=== PATIENT | female | born 1965 | race American Indian/Alaskan Native ===

== ENCOUNTER 2017-04-05 17:03 | Emergency (ER) | payer SELFPAY ==
--- NOTE | 2017-04-05 17:40 | Emergency Department Report ---
Stated Complaint: BILAT FOOT PAIN Time Seen by Provider: 04/05/17 17:38 - HPI History of Present Illness: PT c/o numbness to both feet. PT states she is boarderline DM - ROS Review of Systems: + increased thirst and urination + irregular cycle - Exam Physical Exam: R foot appears normal. no weakness MSE screening note: Focused history and physical exam performed. Due to findings the following was ordered: ED Disposition for MSE Condition: Stable
[2017-04-05 18:06] LABS: Basophils % (Auto) 0.4 % (0.0-1.8); Eosinophils % (Auto) 2.9 % (0.0-4.3); Hematocrit 42.9 % (30.3-42.9); Hemoglobin 13.6 gm/dl (10.1-14.3); Mean Corpuscular HGB Conc 32 % (30-34); Mean Corpuscular Volume 75 fl (79-97); Platelet Count 197 K/mm3 (140-440); Red Blood Count 5.72 M/mm3 (3.65-5.03)
[2017-04-05 18:14] LABS: Mean Corpuscular Hemoglobin 24 pg (28-32); Red Cell Distribution Width 20.5 % (13.2-15.2)
[2017-04-05 18:18] LABS: Anion Gap 16 mmol/L; BUN/Creatinine Ratio 28.75; Blood Urea Nitrogen 23 mg/dL (7-17); Carbon Dioxide 26 mmol/L (22-30); Chloride 106.2 mmol/L (98-107); Glucose 152 mg/dL (65-100); Sodium 144 mmol/L (137-145)
[2017-04-06 06:41] LABS: Bacteria,Urine 1+ /HPF (Negative); Bilirubin,Urine NEG (Negative); Blood,Urine NEG (Negative); Ketones,Urine NEG (Negative); Leukocyte Esterase,Urine SM (Negative); Mucus,Urine FEW /HPF; Nitrite,Urine NEG (Negative); Protein,Urine <15 mg/dL mg/dL (Negative); Urobilinogen,Urine < 2.0 mg/dL (<2.0)
[2017-04-06] MEDS ORDERED: MOTRIN PO ONE (07:47)
--- NOTE | 2017-04-06 07:49 | Emergency Department Report ---
HPI - General Chief Complaint: Extremity Injury, Lower Time Seen by Provider: 04/05/17 17:38 - HPI HPI: 51-year-old [place] female coming in pain in both feet but worse on the left. She states that her pain is accompanied by numbness, and tingling but no weakness or paralysis. Patient has not taking any medication at home for her symptoms. She denies any exacerbating factors. She denies any alleviating factors. She denies any recent travel, patient has not been taking her medications due to lack of insurance. She does have a history of CHF, high blood pressure. MD Complaint: Foot pain -: Gradual Location: Left foot Radiation: none Migration to: no migration Severity scale (0 -10): 10 Quality: sharp Improves With: nothing Associated Symptoms: Numbness and tingling ED Past Medical Hx - Past Medical History Previous Medical History?: Yes Hx Hypertension: Yes Hx Diabetes: Yes (borderline) - Surgical History Past Surgical History?: No - Family History Family history: hypertension - Social History Smoking Status: Current Every Day Smoker Substance Use Type: Alcohol - Medications Home Medications: Home Medications Medication Instructions Recorded Confirmed Last Taken Type Naproxen [Naprosyn] 500 mg PO BID #30 tablet 01/14/14 Unknown Rx methOCARBAMOL [Robaxin] 500 mg PO BID #30 tab 01/14/14 Unknown Rx traMADol [Ultram 50 MG tab] 50 mg PO Q6HR PRN #30 tablet 01/14/14 Unknown Rx Furosemide [Lasix] 20 mg PO DAILY #7 tablet 04/02/14 Unknown Rx HYDROcodone/APAP 5-325 [[place] 2 each PO Q6HR PRN #30 tablet 04/02/14 Unknown Rx 5/325] Sulfamethoxazole/Trimethoprim 1 each PO BID #14 tablet 04/02/14 Unknown Rx [Bactrim Ds] Gabapentin [Neurontin] 100 mg PO Q8HR #30 capsule 04/06/17 Unknown Rx ED Review of Systems ROS: Stated complaint: BILAT FOOT PAIN Other details as noted in HPI Comment: All other systems reviewed and negative Cardiovascular: as per HPI Endocrine: no symptoms reported Musculoskeletal: other (bilateral foot pain) Physical Exam - Physical Exam Vital Signs: Vital Signs 04/05/17 04/06/17 04/06/17 17:36 02:25 05:34 Temperature 98.3 F 97.5 F L Pulse Rate 97 H 72 Respiratory 16 18 Rate Blood Pressure 176/72 185/101 196/83 O2 Sat by Pulse 98 100 Oximetry 04/06/17 04/06/17 04/06/17 05:46 06:15 06:31 Temperature Pulse Rate Respiratory Rate Blood Pressure 176/72 162/84 134/92 O2 Sat by Pulse Oximetry 04/06/17 04/06/17 04/06/17 06:46 07:00 07:15 Temperature Pulse Rate Respiratory Rate Blood Pressure 189/88 158/77 165/75 O2 Sat by Pulse Oximetry 04/06/17 04/06/17 07:30 07:35 Temperature Pulse Rate Respiratory 16 Rate Blood Pressure 166/77 O2 Sat by Pulse 98 Oximetry Physical Exam: - Physical Exam Physical Exam: - General Limitations: No Limitations General appearance: alert, in no apparent distress, obese - Head Head exam: Present: atraumatic, normocephalic - Eye Eye exam: Present: normal appearance - ENT ENT exam: Present: mucous membranes moist - Neck Neck exam: Present: normal inspection - Respiratory Respiratory exam: Present: normal lung sounds bilaterally. Absent: respiratory distress - Cardiovascular Cardiovascular Exam: Present: normal rhythm, normal rate. Absent: systolic murmur, diastolic murmur, rubs, gallop - GI/Abdominal GI/Abdominal exam: Present: soft, normal bowel sounds - Extremities Exam Extremities exam: Present: normal inspection, good dorsalis pedis pulses bilaterally, good posterior tibial pulses bilaterally, subjective neuropathy both feet. - Back Exam Back exam: Present: normal inspection - Neurological Exam Neurological exam: Present: alert, oriented X3 - Psychiatric Psychiatric exam: normal affect and mood - Skin Skin exam: Present: warm, dry, intact, normal color. Absent: rash ED Course Vital Signs 04/05/17 04/06/17 04/06/17 17:36 02:25 05:34 Temperature 98.3 F 97.5 F L Pulse Rate 97 H 72 Respiratory 16 18 Rate Blood Pressure 176/72 185/101 196/83 O2 Sat by Pulse 98 100 Oximetry 04/06/17 04/06/17 04/06/17 05:46 06:15 06:31 Temperature Pulse Rate Respiratory Rate Blood Pressure 176/72 162/84 134/92 O2 Sat by Pulse Oximetry 04/06/17 04/06/17 04/06/17 06:46 07:00 07:15 Temperature Pulse Rate Respiratory Rate Blood Pressure 189/88 158/77 165/75 O2 Sat by Pulse Oximetry 04/06/17 04/06/17 07:30 07:35 Temperature Pulse Rate Respiratory 16 Rate Blood Pressure 166/77 O2 Sat by Pulse 98 Oximetry - Reevaluation(s) Reevaluation #1: 04/06/17 07:49 Patient advised to follow up with PCP for proper diabetes diagnosis along with hemoglobin A1c. Glucose was slightly abnormal in ED patient advised to the urgency of this follow-up. ED Medical Decision Making - Lab Data Result diagrams: 04/05/17 17:57 04/05/17 17:57 Critical care attestation.: If time is entered above; I have spent that time in minutes in the direct care of this critically ill patient, excluding procedure time. ED Disposition Clinical Impression: Hyperglycemia Neuropathy, peripheral Qualifiers: Peripheral neuropathy type: polyneuropathy, unspecified Qualified Code(s): G62.9 - Polyneuropathy, unspecified Disposition: DC-01 TO HOME OR SELFCARE Is pt being admited?: No Does the pt Need Aspirin: No Condition: Stable Instructions: Peripheral Neuropathy (ED), Hyperglycemia, Non-Diabetic (ED) Prescriptions: Gabapentin [Neurontin] 100 mg PO Q8HR #30 capsule Referrals: PRIMARY CARE, [Primary Care Provider] - 3-5 Days
[2017-04-06 08:06] VITALS: BP 161/78
== END 2017-04-06 08:21 | disposition home or self-care (01) ==
LOC: ED 17:03
DX: E11.65 Type 2 diabetes mellitus with hyperglycemia (principal); E11.42 Type 2 diabetes mellitus with diabetic polyneuropathy; I10 Essential (primary) hypertension; F17.210 Nicotine dependence, cigarettes, uncomplicated
CPT/HCPCS: 36415; 80048; 81001; 84703; 85025; 99283

== ENCOUNTER 2019-04-27 08:21 | Inpatient (IN) | payer OTHER ==
--- NOTE | 2019-04-27 08:45 | Emergency Department Report ---
HPI - HPI HPI: 53 yo comes to ER today complaining of general "not feeling good." She denies fever/chills. She was seen here earlier in the week for an insect bite to the right calf. Pt states she is taking her antibiotic. She denies cp or sob. She says "do something for me I feel sick." She states when she eats she gets nauseated and she does report some diarrhea. Pt is ill appearing today- mild tachycardia 106 on admit. PMH arthritis HTN borderline DM- does not take meds and does not monitor glucose chronic pain home meds robaxin lasix norco gabapentin motrin SSD for leg keflex for leg wound Lives with daughter in [place]; lives with daughter pcp [facility] [place] <ELSI BLAS - Last Filed: 04/27/19 09:49> - HPI HPI: I agree with the previously mentioned HPI from the nurse practitioner. Now, knowing the patient has severe hyperglycemia, the patient does admit to polyuria, polydipsia. She denies any fever, chest pain, shortness of breath. No recent travel or sick contacts at home. <JAYY VIZCAINO - Last Filed: 04/27/19 15:41> - General Chief Complaint: Extremity Problem,Nontraumatic Time Seen by Provider: 04/27/19 08:43 ED Past Medical Hx - Past Medical History Previous Medical History?: Yes Hx Hypertension: Yes Hx CVA: No Hx Heart Attack/AMI: No Hx Congestive Heart Failure: No Hx Diabetes: Yes (borderline) Hx Deep Vein Thrombosis: No Hx Pulmonary Embolism: No Hx GERD: No Hx Liver Disease: No Hx Renal Disease: No Hx of Cancer: No Hx Sickle Cell Disease: No Hx Arthritis: Yes Hx Headaches / Migraines: No Hx Seizures: No Hx Kidney Stones: No Hx Psychiatric Treatment: No Hx Asthma: No Hx COPD: No Hx Tuberculosis: No Hx Dementia: No Hx HIV: No - Surgical History Past Surgical History?: Yes Additional Surgical History: surgery on foot - Family History Family history: other (mom and dad dec htn/dm) - Social History Smoking Status: Never Smoker Substance Use Type: None <ELSI BLAS - Last Filed: 04/27/19 09:49> <JAYY VIZCAINO - Last Filed: 04/27/19 15:41> - Medications Home Medications: Home Medications Medication Instructions Recorded Confirmed Last Taken Type Ibuprofen [Motrin] 800 mg PO Q8HR PRN #30 tablet 04/25/19 04/27/19 Unknown Rx cephALEXin [Keflex] 500 mg PO Q12HR #20 cap 04/25/19 04/27/19 Unknown Rx Diclofenac 1% [Diclofenac 1% 2 gram TP QID 04/27/19 04/27/19 Unknown History topical gel] Mupirocin [Bactroban 2%] 1 applic TP BID 04/27/19 04/27/19 Unknown History Silver Sulfadiazine [Ssd] 1 applic TP BID 04/27/19 04/27/19 Unknown History amLODIPine [Norvasc] 10 mg PO DAILY 04/27/19 04/27/19 Unknown History hydroCHLOROthiazide [HCTZ] 25 mg PO QDAY 04/27/19 04/27/19 Unknown History ED Review of Systems ROS: Stated complaint: CHEST PAIN/RT LEG PAIN Other details as noted in HPI Comment: All other systems reviewed and negative Constitutional: denies: chills, fever Respiratory: denies: cough Cardiovascular: denies: chest pain, palpitations, dyspnea on exertion, orthopnea Endocrine: denies: excessive sweating Gastrointestinal: as per HPI, nausea. denies: abdominal pain, vomiting Genitourinary: denies: urgency, dysuria Musculoskeletal: denies: back pain Skin: denies: rash, lesions Neurological: as per HPI, weakness. denies: headache Psychiatric: denies: anxiety, depression Hematological/Lymphatic: denies: easy bleeding <ELSI BLAS - Last Filed: 04/27/19 09:49> ROS: Stated complaint: CHEST PAIN/RT LEG PAIN Other details as noted in HPI <JAYY VIZCAINO - Last Filed: 04/27/19 15:41> Physical Exam - Physical Exam Vital Signs: Vital Signs 04/27/19 08:29 Temperature 98.5 F Pulse Rate 106 H Respiratory 16 Rate Blood Pressure 160/85 [Left] O2 Sat by Pulse 97 Oximetry Physical Exam: alert appears much older than stated age ambulatory s1s2 mild tachycardia round obese abd no jvd no edema no cva tenderness <ELSI BLAS - Last Filed: 04/27/19 09:49> - Physical Exam Vital Signs: Vital Signs 04/27/19 08:29 Temperature 98.5 F Pulse Rate 106 H Respiratory 16 Rate Blood Pressure 160/85 [Left] O2 Sat by Pulse 97 Oximetry Physical Exam: GENERAL: Patient is ill-appearing. HENT: Normocephalic. Atraumatic. Patient has moist mucous membranes. EYES: Extraocular motions are intact. Pupils equal reactive to light bilaterally. NECK: Supple. Trachea is midline. CHEST/LUNGS: Clear to auscultation. There is no respiratory distress noted. HEART/CARDIOVASCULAR: Regular. There is no tachycardia. There is no murmur. ABDOMEN: Abdomen is soft, nontender. Patient has normal bowel sounds. There is no abdominal distention. SKIN: There is a small ulcerating wound and and mild erythema to the distal right lower extremity. No bleeding, weeping, drainage. NEURO: The patient is awake, alert, and oriented. The patient is cooperative. The patient has no focal neurologic deficits. Normal speech. MUSCULOSKELETAL: There is no tenderness or deformity. There is no evidence of acute injury. <JAYY VIZCAINO S - Last Filed: 04/27/19 15:41> ED Course Vital Signs 04/27/19 08:29 Temperature 98.5 F Pulse Rate 106 H Respiratory 16 Rate Blood Pressure 160/85 [Left] O2 Sat by Pulse 97 Oximetry <ELSI BLAS - Last Filed: 04/27/19 09:49> Vital Signs 04/27/19 08:29 Temperature 98.5 F Pulse Rate 106 H Respiratory 16 Rate Blood Pressure 160/85 [Left] O2 Sat by Pulse 97 Oximetry <JAYY VIZCAINO S - Last Filed: 04/27/19 15:41> ED Medical Decision Making - Lab Data Result diagrams: 04/27/19 08:52 - Medical Decision Making Lab Results 04/27/19 Range/Units 08:52 Sodium 117 L* (137-145) mmol/L Potassium 5.3 H (3.6-5.0) mmol/L Chloride 77.8 L (98-107) mmol/L Carbon Dioxide 20 L (22-30) mmol/L Anion Gap 25 mmol/L BUN 22 H (7-17) mg/dL Creatinine 1.1 (0.7-1.2) mg/dL Estimated GFR > 60 ml/min BUN/Creatinine Ratio 20 % Glucose 1327 H* (65-100) mg/dL Calcium 10.6 H (8.4-10.2) mg/dL Total Bilirubin 0.60 (0.1-1.2) mg/dL AST 20 (5-40) units/L ALT 23 (7-56) units/L Alkaline Phosphatase 114 (35-129) units/L Total Protein 7.7 (6.3-8.2) g/dL Albumin 4.1 (3.9-5) g/dL Albumin/Globulin Ratio 1.1 % Vital Signs 04/27/19 08:29 Temperature 98.5 F Pulse Rate 106 H Respiratory 16 Rate Blood Pressure 160/85 [Left] O2 Sat by Pulse [address] Vizcaino in main ED Pt udpdated on condition; she has been asked to call her daughter. additional labs/orders placed Charge Nurse moved pt to main ED. - Differential Diagnosis ro sytemic infection/electolyte imbalance/hyperglycemia <ELSI BLAS - Last Filed: 04/27/19 09:49> - Lab Data Result diagrams: 04/27/19 10:06 04/27/19 12:52 - EKG Data -: EKG Interpreted by Me EKG shows normal: sinus rhythm, axis, intervals, QRS complexes (LVH), ST-T waves (early repolarization) Rate: normal - EKG Data When compared to previous EKG there are: previous EKG unavailable Interpretation: other (sinus rhythm, LVH, early repolarization) - Radiology Data Radiology results: image reviewed interpreted by me: Chest x-ray does not show any acute process. There are no pleural effusions, obvious pneumonia and there is no pneumothorax. - Medical Decision Making This patient originally was on the fast-track side of this emergency department with some general complaints of feeling ill. Her initial labs began showing concerns for DKA with a blood sugar greater than 1300 and hyponatremia. Patient did not have any significant venous acidosis but does have an anion gap elevation of 25. The sodium was 117 but part of this may be pseudohyponatremia. The patient was previously known is a borderline diabetic but she does appear to have diabetes at this time and even appears to be in DKA. She was placed on an insulin drip and given IV fluid resuscitation. The patient will be admitted to the ICU for further evaluation and treatment and was accepted for admission by the hospitalist service. Vital signs stable throughout her ED course thus far. - Differential Diagnosis Sepsis, DKA, HHNK, Cellulitis <JOSEPHJAYY Austin - Last Filed: 04/27/19 15:41> Critical care attestation.: If time is entered above; I have spent that time in minutes in the direct care of this critically ill patient, excluding procedure time. <ELSI BLAS - Last Filed: 04/27/19 09:49> Critical Care Time: Yes Critical care time in (mins) excluding proc time.: 35 Critical care attestation.: If time is entered above; I have spent that time in minutes in the direct care of this critically ill patient, excluding procedure time. Critical care time was spent on this patient and doing her initial evaluation, multiple re-evaluations, ordering and interpretation of labs and imaging, ordering of IV fluid resuscitation and insulin drip, discussion with the hospitalist service. Critical Care Time: 35 minutes <JOSEPHJAYY S - Last Filed: 04/27/19 15:41> ED Disposition Is pt being admited?: Yes Does the pt Need Aspirin: No <ELSI BLAS A - Last Filed: 04/27/19 09:49> Is pt being admited?: Yes Time of Disposition: 10:54 <JOSEPHJAYY Austin - Last Filed: 04/27/19 15:41> Clinical Impression: Diabetes mellitus, new onset Diabetic ketoacidosis Qualifiers: Diabetes mellitus type: other specified (including CECILIA) Diabetes mellitus complication detail: without coma Qualified Code(s): E13.10 - Other specified diabetes mellitus with ketoacidosis without coma Hypertension Qualifiers: Hypertension type: essential hypertension Qualified Code(s): I10 - Essential (primary) hypertension Cellulitis, leg Qualifiers: Laterality: right Qualified Code(s): L03.115 - Cellulitis of right lower limb Disposition: OP ADMIT IP TO THIS HOSP Condition: Serious
[2019-04-27] MEDS ORDERED: LIDOCAINE-MPF (1%) 10 MG/1 ML VIAL 5 ML INFILTRATI ONE (09:16)
[2019-04-27] MEDS ORDERED: IBUPROFEN 800 MG TAB PO ONE (09:16)
[2019-04-27 09:25] LABS: Alanine Aminotransferase 23 units/L (7-56); Albumin 4.1 g/dL (3.9-5); BUN/Creatinine Ratio 20; Blood Urea Nitrogen 22 mg/dL (7-17); Calcium 10.6 mg/dL (8.4-10.2); Hemolysis Index 65
[2019-04-27] MEDS ORDERED: ONDANSETRON 4 MG/2 ML INJ IV ONE ×2 (09:36→10:33)
[2019-04-27] MEDS ORDERED: LIDOCAINE-MPF (1%) 10 MG/1 ML VIAL 5 ML ONE (09:46)
--- NOTE | 2019-04-27 10:15 | XRay Report ---
CHEST 1 VIEW INDICATION: sob. Acute shortness of breath COMPARISON: 05/18/2010 FINDINGS: Support devices: None. Heart: Within normal limits. Lungs/Pleura: No acute air space or interstitial disease. Additional findings: None. IMPRESSION: 1. No acute findings. Signer Name: Ubaldo Gamez MD Signed: 04/27/2019 10:11 AM Workstation Name: [id number]
[2019-04-27] MEDS ORDERED: DEXTROSE 50% IN WATER (25GM) 50 ML SYRINGE IV PRN (10:33)
[2019-04-27] MEDS ORDERED: SODIUM CHLORIDE 0.9% 1000 ML 1,000 ML IV ONE (10:33)
[2019-04-27] MEDS: INSULIN REGULAR, HUMAN 100 UNITS in SODIUM CHLORIDE 0.9% 99 ML IV SCH (11:06)
[2019-04-27 11:18] LABS: HCG Qualitative,Urine Negative (Negative)
[2019-04-27 11:19] LABS: Bacteria,Urine 1+ /HPF (Negative); Bilirubin,Urine NEG (Negative); Blood,Urine NEG (Negative); Color,Urine Colorless (Yellow); Protein,Urine <15 mg/dL mg/dL (Negative); Urobilinogen,Urine < 2.0 mg/dL (<2.0)
[2019-04-27 11:29] LABS: Basophils % (Auto) 0.4 % (0.0-1.8); Eosinophils # (Auto) 0.1 K/mm3 (0.0-0.4); Eosinophils % (Auto) 0.7 % (0.0-4.3); Hematocrit 49.6 % (30.3-42.9); Hemoglobin 15.6 gm/dl (10.1-14.3); Lymphocytes # (Auto) 1.3 K/mm3 (1.2-5.4); Lymphocytes % (Auto) 12.2 % (13.4-35.0); Mean Corpuscular HGB Conc 31 % (30-34); Mean Corpuscular Volume 86 fl (79-97); Monocytes # (Auto) 0.8 K/mm3 (0.0-0.8); Monocytes % (Auto) 7.5 % (0.0-7.3); Platelet Count 219 K/mm3 (140-440); Red Blood Count 5.75 M/mm3 (3.65-5.03); Red Cell Distribution Width 13.2 % (13.2-15.2)
[2019-04-27 12:26] LABS: BUN/Creatinine Ratio 21; Blood Urea Nitrogen 21 mg/dL (7-17); Calcium 11.2 mg/dL (8.4-10.2); Hemolysis Index 13
[2019-04-27] MEDS ORDERED: hydrALAZINE 20 MG/1 ML INJ IV PRN (12:35)
--- NOTE | 2019-04-27 12:42 | History and Physical Report ---
History of Present Illness Date of examination: 04/27/19 Date of admission: 04/27/19 10:54 Chief complaint: Not feeling well, nausea or vomiting History of present illness: 49-year-old -[place] female patient with significant past medical history of hypertension, recent insect bite on oral antibiotics presented to the emergency room With the complaints of not feeling well, nausea vomiting and generalized weakness, Denies chest pain or shortness of breath, Denies headache dizziness Denies weakness or numbness, Initial workup in the emergency room is consistent with severe hyper glycemia. Blood sugars more than thousand, mild acidosis, hyponatremia Patient was started on insulin drip and is being admitted to ICU for further evaluation and management Patient also complains of leg cramps and reports that she takes pain medications Robaxin and gabapentin. Patient denies history of diabetes mellitus however reports that she was told that she is prediabetic and is not on any medication Past History Past Medical History: diabetes, hypertension, other (muscle cramps) Past Surgical History: Other (tubal ligation, foot surgery) Social history: denies: smoking, alcohol abuse, prescription drug abuse Family history: hypertension Medications and Allergies Allergies Allergy/AdvReac Type Severity Reaction Status Date / Time No Known Allergies Allergy Unverified 01/14/14 09:59 Home Medications Medication Instructions Recorded Confirmed Last Taken Type Ibuprofen [Motrin] 800 mg PO Q8HR PRN #30 tablet 04/25/19 04/27/19 Unknown Rx cephALEXin [Keflex] 500 mg PO Q12HR #20 cap 04/25/19 04/27/19 Unknown Rx Diclofenac 1% [Diclofenac 1% 2 gram TP QID 04/27/19 04/27/19 Unknown History topical gel] Mupirocin [Bactroban 2%] 1 applic TP BID 04/27/19 04/27/19 Unknown History Silver Sulfadiazine [Ssd] 1 applic TP BID 04/27/19 04/27/19 Unknown History amLODIPine [Norvasc] 10 mg PO DAILY 04/27/19 04/27/19 Unknown History hydroCHLOROthiazide [HCTZ] 25 mg PO QDAY 04/27/19 04/27/19 Unknown History Active Meds: Active Medications Amlodipine Besylate (Norvasc) 10 mg PO DAILY PAMELA Dextrose (D50w (25gm) Syringe) 0 ml IV PRN PRN PRN Reason: Hypoglycemia Hydralazine HCl (Apresoline) 25 mg PO Q8HR PAMELA Hydralazine HCl (Apresoline) 10 mg IV Q4HR PRN PRN Reason: Hypertension Hydrochlorothiazide (Hctz) 25 mg PO QDAY PAMELA Insulin Human Regular 100 (units/ Sodium Chloride) 100 mls @ 6 mls/hr IV TITR PAMELA; Protocol Last Admin: 04/27/19 11:06 Dose: 8 units/hr, 8 mls/hr Documented by: Sodium Chloride (Nacl 0.9% 1000 Ml) 1,000 mls @ 125 mls/hr IV DIRECT PAMELA Pantoprazole Sodium (Protonix) 40 mg IV QDAY [facility] Review of Systems Constitutional: fatigue, weakness, no weight loss, no weight gain, no fever, no chills Ears, nose, mouth and throat: no nasal congestion, no nasal discharge Cardiovascular: no chest pain, no orthopnea, no palpitations Respiratory: no cough, no shortness of breath Gastrointestinal: nausea, no vomiting, no diarrhea Musculoskeletal: shooting leg pain, leg numbness/tingling, muscle cramps, no arthritis Integumentary: lesions (insect bite), no rash Neurological: weakness, no seizures, no syncope Psychiatric: no anxiety, no depression Endocrine: no cold intolerance, no heat intolerance Hematologic/Lymphatic: no easy bruising, no easy bleeding Allergic/Immunologic: no urticaria, no allergic rhinitis Exam - Constitutional Vitals: Temp Pulse Resp BP Pulse Ox 98.6 F 99 H 20 165/94 97 04/27/19 11:51 04/27/19 11:51 04/27/19 11:51 04/27/19 11:51 04/27/19 11:51 General appearance: Present: no acute distress, well-nourished - EENT Eyes: Present: PERRL, EOM intact - Neck Neck: Present: supple, normal ROM - Respiratory Respiratory effort: normal Respiratory: bilateral: diminished, negative: rales, rhonchi, wheezing - Cardiovascular Rhythm: regular Heart Sounds: Present: S1 & S2 - Extremities Extremities: no ischemia, No edema, abnormal (infected wound on the carr ) - Abdominal General gastrointestinal: Present: soft, non-tender, non-distended, normal bowel sounds - Integumentary Integumentary: Present: clear, warm - Musculoskeletal Musculoskeletal: strength equal bilaterally - Psychiatric Psychiatric: appropriate mood/affect, cooperative - Neurologic Neurologic: CNII-XII intact, moves all extremities Results - Labs CBC & Chem 7: 04/27/19 10:06 04/27/19 12:52 Labs: Abnormal lab results 04/27/19 04/27/19 04/27/19 Range/Units 08:52 09:45 10:06 RBC 5.75 H (3.65-5.03) M/mm3 Hgb 15.6 H (10.1-14.3) gm/dl Hct 49.6 H (30.3-42.9) % MCH 27 L (28-32) pg Lymph % (Auto) 12.2 L (13.4-35.0) % [place] % (Auto) 7.5 H (0.0-7.3) % Seg Neutrophils % 79.2 H (40.0-70.0) % Seg Neutrophils # 8.5 H (1.8-7.7) K/mm3 Sodium 117 L* (137-145) mmol/L Potassium 5.3 H (3.6-5.0) mmol/L Chloride 77.8 L (98-107) mmol/L Carbon Dioxide 20 L (22-30) mmol/L BUN 22 H (7-17) mg/dL Glucose 1327 H* (65-100) mg/dL Calcium 10.6 H (8.4-10.2) mg/dL Magnesium 2.90 H (1.7-2.3) mg/dL 04/27/19 Range/Units 11:36 RBC (3.65-5.03) M/mm3 Hgb (10.1-14.3) gm/dl Hct (30.3-42.9) % MCH (28-32) pg Lymph % (Auto) (13.4-35.0) % [place] % (Auto) (0.0-7.3) % Seg Neutrophils % (40.0-70.0) % Seg Neutrophils # (1.8-7.7) K/mm3 Sodium 124 L D (137-145) mmol/L Potassium (3.6-5.0) mmol/L Chloride 84.6 L (98-107) mmol/L Carbon Dioxide 20 L (22-30) mmol/L BUN 21 H (7-17) mg/dL Glucose (65-100) mg/dL Calcium 11.2 H (8.4-10.2) mg/dL Magnesium (1.7-2.3) mg/dL Assessment and Plan --Hyperosmolar nonketotic hyperglycemia; Vigorous IV hydration, insulin drip per protocol Follow electrolytes and correct as needed Supportive care, clear liquid diet to advance as tolerated --New onset diabetes mellitus; Continue insulin drip, transitioned to long-acting insulin been stable diabetic education, nutrition consult Home health nurse upon discharge for disease monitoring --Hyponatremia/pseudohyponatremia; Secondary to severe hyperglycemia, closely monitor electrolytes --Hypertension; resume home antihypertensives When necessary medications --Metabolic acidosis; mild, IV fluids Closely monitor --Severe dehydration; vigorous IV hydration --Peripheral neuropathy; gabapentin --Severe muscle spasms; muscle relaxers, pain medication IV fluids, monitor electrolytes --DVT : prophylaxis; Lovenox Closely monitor the patient and adjust the management as needed Plan of care reviewed with the patient and her nurse Critical care consult Critical care time 45 minutes
[2019-04-27 14:15] LABS: Calcium 11.4 mg/dL (8.4-10.2)
[2019-04-27] MEDS ORDERED: ZOLPIDEM 5 MG TAB PO PRN (14:57)
[2019-04-27] MEDS: KETOROLAC 30 MG/1 ML INJ IV SCH ×2 (15:17→22:07)
[2019-04-27] MEDS: hydrALAZINE 25 MG TAB PO SCH ×2 (15:19→22:05)
[2019-04-27] MEDS: D5W/0.45% NACL/KCL 20 MEQ 20 MEQ/1,000 ML BAG IV SCH ×2 (15:51→23:42)
[2019-04-27 16:00] LABS: Calcium 11.7 mg/dL (8.4-10.2)
[2019-04-27 17:00] LABS: Calcium 11.3 mg/dL (8.4-10.2)
[2019-04-27] MEDS: oxyCODONE /ACETAMINOPHEN 5-325MG TAB PO PRN (17:48)
[2019-04-27 21:19] LABS: Calcium 10.9 mg/dL (8.4-10.2)
[2019-04-27] MEDS: GABAPENTIN 100 MG CAP PO SCH (22:04)
[2019-04-27] MEDS: MUPIROCIN 2% OINT 22 GM TP SCH (22:06)
[2019-04-27] MEDS: cephALEXin 500 MG CAP PO SCH (22:11)
[2019-04-28] MEDS: D5W/0.45% NACL/KCL 20 MEQ 20 MEQ/1,000 ML BAG IV SCH (05:14)
[2019-04-28] MEDS: oxyCODONE /ACETAMINOPHEN 5-325MG TAB PO PRN ×2 (05:15→22:21)
[2019-04-28 05:16] LABS: Calcium 10.1 mg/dL (8.4-10.2)
[2019-04-28] MEDS: hydrALAZINE 25 MG TAB PO SCH ×3 (05:16→22:21)
[2019-04-28] MEDS: GABAPENTIN 100 MG CAP PO SCH ×3 (05:16→22:21)
[2019-04-28] MEDS: KETOROLAC 30 MG/1 ML INJ IV SCH ×2 (06:07→14:50)
[2019-04-28] MEDS: INSULIN REGULAR, HUMAN 100 UNITS in SODIUM CHLORIDE 0.9% 99 ML IV SCH (07:35)
[2019-04-28] MEDS: amLODIPine 10 MG TAB PO SCH (09:46)
[2019-04-28] MEDS: hydroCHLOROthiazide 25 MG TAB PO SCH (09:46)
[2019-04-28] MEDS: cephALEXin 500 MG CAP PO SCH ×2 (09:47→22:21)
[2019-04-28] MEDS: MUPIROCIN 2% OINT 22 GM TP SCH ×2 (09:48→22:34)
[2019-04-28] MEDS ORDERED: INSULIN NPH/REGULAR 70/30 INJ SUB-Q NR (09:49)
--- NOTE | 2019-04-28 09:49 | Progress Note ---
Assessment and Plan Assessment and plan: --Hyperosmolar nonketotic hyperglycemia; Vigorous IV hydration, insulin drip per protocol The patient was reasonable level DC insulin drip, Accu-Cheks every before meals and at bedtime, change IV fluids Transitioned to long-acting Novolin 7030 ADA diet, sliding scale coverage --New onset diabetes mellitus; Accu-Chek sliding scale coverage DC insulin drip transitioned to long-acting insulin diabetic education, nutrition consult Home health nurse upon discharge for disease monitoring --Hyponatremia/pseudohyponatremia; significantly improved --Hypertension; resume home antihypertensives When necessary medications --Metabolic acidosis; mild, IV fluids Closely monitor --Severe dehydration; vigorous IV hydration --Peripheral neuropathy; gabapentin --Severe muscle spasms; muscle relaxers, pain medication Symptoms improved --DVT : prophylaxis; Lovenox Patient is stable to be transferred out of ICU to medical floor Possible discharge in 1-2 days if stable he high probability of a clinically significant, sudden or life threatening deterioration of the [endocrine, metabolic] system(s) required my full and direct attention, intervention and personal management. The aggregate critical care time was [35] minutes. This time is in addition to time spent performing reported procedures but includes the following: [] Data Review and interpretation [] Patient assessment and monitoring of vital signs [] Documentation [] Medication orders and management History Interval history: Patient seen and examined and medical records reviewed And is on insulin drip sugars are reasonable level DC insulin drip ,start ADA diet Transitioned to long-acting insulin Patient feels better no new complaints Vital signs noted Hospitalist Physical - Constitutional Vitals: Temp Pulse Resp BP Pulse Ox 97.7 F 85 17 138/84 97 04/28/19 08:00 04/28/19 09:46 04/28/19 08:47 04/28/19 09:46 04/28/19 08:47 General appearance: Present: no acute distress, well-nourished - EENT Eyes: Present: PERRL, EOM intact - Neck Neck: Present: supple, normal ROM - Respiratory Respiratory effort: normal Respiratory: bilateral: diminished, negative: rales, rhonchi, wheezing - Cardiovascular Rhythm: regular Heart Sounds: Present: S1 & S2 - Extremities Extremities: no ischemia, No edema - Abdominal General gastrointestinal: soft, non-tender, non-distended, normal bowel sounds - Integumentary Integumentary: Present: clear, warm - Psychiatric Psychiatric: appropriate mood/affect, cooperative - Neurologic Neurologic: moves all extremities Results - Labs CBC & Chem 7: 04/27/19 10:06 04/28/19 11:11 Labs: Laboratory Last Values WBC 10.8 K/mm3 (4.5-11.0) 04/27/19 10:06 RBC 5.75 M/mm3 (3.65-5.03) H 04/27/19 10:06 Hgb 15.6 gm/dl (10.1-14.3) H 04/27/19 10:06 Hct 49.6 % (30.3-42.9) H 04/27/19 10:06 MCV 86 fl (79-97) 04/27/19 10:06 MCH 27 pg (28-32) L 04/27/19 10:06 MCHC 31 % (30-34) 04/27/19 10:06 RDW 13.2 % (13.2-15.2) 04/27/19 10:06 Plt Count 219 K/mm3 (140-440) 04/27/19 10:06 Lymph % (Auto) 12.2 % (13.4-35.0) L 04/27/19 10:06 [place] % (Auto) 7.5 % (0.0-7.3) H 04/27/19 10:06 Eos % (Auto) 0.7 % (0.0-4.3) 04/27/19 10:06 Baso % (Auto) 0.4 % (0.0-1.8) 04/27/19 10:06 Lymph # 1.3 K/mm3 (1.2-5.4) 04/27/19 10:06 [place] # 0.8 K/mm3 (0.0-0.8) 04/27/19 10:06 Eos # 0.1 K/mm3 (0.0-0.4) 04/27/19 10:06 Baso # 0.0 K/mm3 (0.0-0.1) 04/27/19 10:06 Seg Neutrophils % 79.2 % (40.0-70.0) H 04/27/19 10:06 Seg Neutrophils # 8.5 K/mm3 (1.8-7.7) H 04/27/19 10:06 VBG pH 7.334 (7.320-7.420) 04/27/19 10:06 Sodium 137 mmol/L (137-145) 04/28/19 03:35 Potassium 3.7 mmol/L (3.6-5.0) 04/28/19 03:35 Chloride 99.4 mmol/L (98-107) 04/28/19 03:35 Carbon Dioxide 25 mmol/L (22-30) 04/28/19 03:35 16 mmol/L 04/28/19 03:35 BUN 24 mg/dL (7-17) H 04/28/19 03:35 1.4 mg/dL (0.7-1.2) H 04/28/19 03:35 Estimated GFR 47 ml/min 04/28/19 03:35 17 % 04/28/19 03:35 Glucose 69 mg/dL (65-100) 04/28/19 03:35 POC Glucose 157 (70-105) H 04/28/19 09:13 10.1 % (4-6) H 04/27/19 15:01 Calcium 10.1 mg/dL (8.4-10.2) 04/28/19 03:35 Phosphorus 1.60 mg/dL (2.5-4.5) L D 04/28/19 03:35 Magnesium 2.70 mg/dL (1.7-2.3) H 04/28/19 03:35 0.60 mg/dL (0.1-1.2) 04/27/19 08:52 AST 20 units/L (5-40) 04/27/19 08:52 ALT 23 units/L (7-56) 04/27/19 08:52 114 units/L (35-129) 04/27/19 08:52 NT-Pro-B Natriuret Pep 77.07 pg/mL (0-900) 04/27/19 09:45 7.7 g/dL (6.3-8.2) 04/27/19 08:52 4.1 g/dL (3.9-5) 04/27/19 08:52 1.1 % 04/27/19 08:52 Colorless (Yellow) 04/27/19 09:46 Clear (Clear) 04/27/19 09:46 6.0 (5.0-7.0) 04/27/19 09:46 Ur Specific [place] 1.027 (1.003-1.030) 04/27/19 09:46 <15 mg/dl mg/dL (Negative) 04/27/19 09:46 >=500 mg/dL (Negative) 04/27/19 09:46 Neg mg/dL (Negative) 04/27/19 09:46 Neg (Negative) 04/27/19 09:46 Neg (Negative) 04/27/19 09:46 Ur Reducing Substances Not Reportable 04/27/19 09:46 Neg (Negative) 04/27/19 09:46 Not Reportable 04/27/19 09:46 < 2.0 mg/dL (<2.0) 04/27/19 09:46 Ur Leukocyte Esterase Sm (Negative) 04/27/19 09:46 3.0 /HPF (0.0-6.0) 04/27/19 09:46 3.0 /HPF (0.0-6.0) 04/27/19 09:46 U Epithel Cells (Auto) 2.0 /HPF (0-13.0) 04/27/19 09:46 1+ /HPF (Negative) 04/27/19 09:46 Urine HCG, Qual Negative (Negative) 04/27/19 09:46 Active Medications - Current Medications Current Medications: Generic Name Dose Route Start Last Admin Trade Name Freq PRN Reason Stop Dose Admin Amlodipine Besylate 10 mg 04/28/19 10:00 04/28/19 09:46 Norvasc PO 10 mg DAILY PAMELA Administration Cephalexin 500 mg 04/27/19 22:00 04/28/19 09:47 Keflex PO 500 mg Q12HR PAMELA Administration Dextrose 0 ml 04/27/19 10:33 D50w (25gm) Syringe IV PRN PRN Hypoglycemia Gabapentin 100 mg 04/27/19 22:00 04/28/19 05:16 Neurontin PO 100 mg Q8HR PAMELA Administration Hydralazine HCl 25 mg 04/27/19 14:00 04/28/19 05:16 Apresoline PO 25 mg Q8HR PAMELA Administration Hydralazine HCl 10 mg 04/27/19 12:35 Apresoline IV Q4HR PRN HTN >155/90 Hydrochlorothiazide 25 mg 04/28/19 10:00 04/28/19 09:46 Hctz PO 25 mg QDAY PAMELA Administration Sodium Chloride 1,000 mls @ 125 mls/hr 04/27/19 13:00 Nacl 0.9% 1000 Ml IV DIRECT PAMELA Ketorolac Tromethamine 15 mg 04/27/19 15:00 04/28/19 06:07 Toradol IV 05/02/19 14:59 15 mg Q8H PAMELA Administration Mupirocin 1 applic 04/27/19 22:00 04/28/19 09:48 Bactroban 2% TP 1 applic BID PAMELA Administration Oxycodone/Acetaminophen 1 tab 04/27/19 14:49 04/28/19 05:15 Percocet 5/325 PO 1 tab Q6H PRN Administration Pain, Moderate (4-6) Pantoprazole Sodium 40 mg 04/28/19 10:00 04/28/19 09:46 Protonix IV 40 mg QDAY PAMELA Administration Zolpidem Tartrate 5 mg 04/27/19 14:57 Ambien PO QHS PRN Sleep
[2019-04-28] MEDS ORDERED: PANTOPRAZOLE 40 MG INJ IV SCH (10:00)
[2019-04-28] MEDS: SODIUM CHLORIDE 0.9% 1000 ML 1,000 ML IV SCH ×2 (10:35→19:27)
[2019-04-28] MEDS: INSULIN LISPRO 100 UNIT/ML SUB-Q SCH ×3 (11:40→22:21)
[2019-04-28 12:31] LABS: BUN/Creatinine Ratio 23; Blood Urea Nitrogen 23 mg/dL (7-17); Calcium 9.9 mg/dL (8.4-10.2); Hemolysis Index 8
--- NOTE | 2019-04-28 15:56 | Consultation ---
History of Present Illness - Reason for Consult Consult date: 04/28/19 DKA Requesting physician: MICHELINE VICTOR - History of Present Illness 53 y/o female admitted with DKA Past History Past Medical History: diabetes, hypertension, other (muscle cramps) Past Surgical History: Other (tubal ligation, foot surgery) Social history: denies: smoking, alcohol abuse, prescription drug abuse Family history: hypertension Medications and Allergies Allergies Allergy/AdvReac Type Severity Reaction Status Date / Time No Known Allergies Allergy Unverified 01/14/14 09:59 Home Medications Medication Instructions Recorded Confirmed Last Taken Type Ibuprofen [Motrin] 800 mg PO Q8HR PRN #30 tablet 04/25/19 04/27/19 Unknown Rx cephALEXin [Keflex] 500 mg PO Q12HR #20 cap 04/25/19 04/27/19 Unknown Rx Diclofenac 1% [Diclofenac 1% 2 gram TP QID 04/27/19 04/27/19 Unknown History topical gel] Mupirocin [Bactroban 2%] 1 applic TP BID 04/27/19 04/27/19 Unknown History Silver Sulfadiazine [Ssd] 1 applic TP BID 04/27/19 04/27/19 Unknown History amLODIPine [Norvasc] 10 mg PO DAILY 04/27/19 04/27/19 Unknown History hydroCHLOROthiazide [HCTZ] 25 mg PO QDAY 04/27/19 04/27/19 Unknown History Active Meds: Active Medications Amlodipine Besylate (Norvasc) 10 mg PO DAILY [facility] Last Admin: 04/28/19 09:46 Dose: 10 mg Documented by: Cephalexin (Keflex) 500 mg PO Q12HR [facility] Last Admin: 04/28/19 09:47 Dose: 500 mg Documented by: Dextrose (D50w (25gm) Syringe) 0 ml IV PRN PRN PRN Reason: Hypoglycemia Gabapentin (Neurontin) 100 mg PO Q8HR [facility] Last Admin: 04/28/19 13:44 Dose: 100 mg Documented by: Hydralazine HCl (Apresoline) 25 mg PO Q8HR [facility] Last Admin: 04/28/19 13:44 Dose: 25 mg Documented by: Hydralazine HCl (Apresoline) 10 mg IV Q4HR PRN PRN Reason: HTN >155/90 Hydrochlorothiazide (Hctz) 25 mg PO QDAY [facility] Last Admin: 04/28/19 09:46 Dose: 25 mg Documented by: Sodium Chloride (Nacl 0.9% 1000 Ml) 1,000 mls @ 125 mls/hr IV DIRECT [facility] Last Admin: 04/28/19 10:35 Dose: 125 mls/hr Documented by: Insulin Human Isoph/Insulin Regular (Humulin 70/30) 10 unit SUB-Q BIDDIAB [facility] Insulin Human Lispro (Humalog) 0 unit SUB-Q ACHS [facility]; Protocol Last Admin: 04/28/19 11:40 Dose: 4 unit Documented by: Ketorolac Tromethamine (Toradol) 15 mg IV Q8H [facility] Stop: 05/02/19 14:59 Last Admin: 04/28/19 14:50 Dose: 15 mg Documented by: Mupirocin (Bactroban 2%) 1 applic TP BID [facility] Last Admin: 04/28/19 09:48 Dose: 1 applic Documented by: Oxycodone/Acetaminophen (Percocet 5/325) 1 tab PO Q6H PRN PRN Reason: Pain, Moderate (4-6) Last Admin: 04/28/19 05:15 Dose: 1 tab Documented by: Pantoprazole Sodium (Protonix) 40 mg IV QDAY [facility] Last Admin: 04/28/19 09:46 Dose: 40 mg Documented by: Zolpidem Tartrate (Ambien) 5 mg PO QHS PRN PRN Reason: Sleep Review of Systems All systems: negative Exam - Constitutional Vitals: Temp Pulse Resp BP Pulse Ox 98.7 F 99 H 22 126/80 97 04/28/19 12:00 04/28/19 14:21 04/28/19 14:21 04/28/19 14:21 04/28/19 14:10 General appearance: Present: no acute distress, well-nourished, obese - EENT Eyes: Present: PERRL, EOM intact ENT: hearing intact - Neck Neck: Present: supple - Respiratory Respiratory effort: normal Respiratory: bilateral: CTA - Cardiovascular Rhythm: regular Heart Sounds: Present: S1 & S2 - Abdominal General gastrointestinal: Present: soft, non-tender Results - Labs CBC & Chem 7: 04/27/19 10:06 04/28/19 11:11 Labs: Abnormal lab results 04/27/19 04/27/19 04/27/19 Range/Units 14:17 14:21 15:01 Sodium (137-145) mmol/L Chlor[place] 93.8 L (98-107) mmol/L BUN 21 H (7-17) mg/dL Creatinine 1.3 H (0.7-1.2) mg/dL Glucose 301 H (65-100) mg/dL POC Glucose 348 H 360 H (70-105) Hemoglobin A1c (4-6) % Calcium 11.7 H (8.4-10.2) mg/dL Phosphorus (2.5-4.5) mg/dL Magnesium (1.7-2.3) mg/dL 04/27/19 04/27/19 04/27/19 Range/Units 15:01 15:39 16:25 Sodium 136 L (137-145) mmol/L Chloride 96.0 L (98-107) mmol/L BUN 22 H (7-17) mg/dL Creatinine 1.3 H (0.7-1.2) mg/dL Glucose 209 H (65-100) mg/dL POC Glucose 241 H (70-105) Hemoglobin A1c 10.1 H (4-6) % Calcium 11.3 H (8.4-10.2) mg/dL Phosphorus (2.5-4.5) mg/dL Magnesium (1.7-2.3) mg/dL 04/27/19 04/27/19 04/27/19 Range/Units 16:32 17:38 18:42 Sodium (137-145) mmol/L Chloride (98-107) mmol/L BUN (7-17) mg/dL Creatinine (0.7-1.2) mg/dL Glucose (65-100) mg/dL POC Glucose 161 H 182 H 209 H (70-105) Hemoglobin A1c (4-6) % Calcium (8.4-10.2) mg/dL Phosphorus (2.5-4.5) mg/dL Magnesium (1.7-2.3) mg/dL 04/27/19 04/27/19 04/27/19 Range/Units 19:30 20:12 20:40 Sodium 136 L (137-145) mmol/L Chloride 95.7 L (98-107) mmol/L BUN 22 H (7-17) mg/dL Creatinine 1.4 H (0.7-1.2) mg/dL Glucose 155 H (65-100) mg/dL POC Glucose 181 H 133 H (70-105) Hemoglobin A1c (4-6) % Calcium 10.9 H (8.4-10.2) mg/dL Phosphorus (2.5-4.5) mg/dL Magnesium (1.7-2.3) mg/dL 04/27/19 04/27/19 04/27/19 Range/Units 21:40 22:24 23:48 Sodium (137-145) mmol/L Chloride (98-107) mmol/L BUN (7-17) mg/dL Creatinine (0.7-1.2) mg/dL Glucose (65-100) mg/dL POC Glucose 146 H 106 H 162 H (70-105) Hemoglobin A1c (4-6) % Calcium (8.4-10.2) mg/dL Phosphorus (2.5-4.5) mg/dL Magnesium (1.7-2.3) mg/dL 04/28/19 04/28/19 04/28/19 Range/Units 00:52 02:06 03:35 Sodium (137-145) mmol/L Chloride (98-107) mmol/L BUN 24 H (7-17) mg/dL Creatinine 1.4 H (0.7-1.2) mg/dL Glucose (65-100) mg/dL POC Glucose 186 H 106 H (70-105) Hemoglobin A1c (4-6) % Calcium (8.4-10.2) mg/dL Phosphorus 1.60 L D (2.5-4.5) mg/dL Magnesium 2.70 H (1.7-2.3) mg/dL 04/28/19 04/28/19 04/28/19 Range/Units 04:17 05:01 06:11 Sodium (137-145) mmol/L Chloride (98-107) mmol/L BUN (7-17) mg/dL Creatinine (0.7-1.2) mg/dL Glucose (65-100) mg/dL POC Glucose 122 H 235 H 224 H (70-105) Hemoglobin A1c (4-6) % Calcium (8.4-10.2) mg/dL Phosphorus (2.5-4.5) mg/dL Magnesium (1.7-2.3) mg/dL 04/28/19 04/28/19 04/28/19 Range/Units 07:16 08:11 09:13 Sodium (137-145) mmol/L Chloride (98-107) mmol/L BUN (7-17) mg/dL Creatinine (0.7-1.2) mg/dL Glucose (65-100) mg/dL POC Glucose 168 H 199 H 157 H (70-105) Hemoglobin A1c (4-6) % Calcium (8.4-10.2) mg/dL Phosphorus (2.5-4.5) mg/dL Magnesium (1.7-2.3) mg/dL 04/28/19 04/28/19 04/28/19 Range/Units 10:22 11:11 11:42 Sodium 133 L (137-145) mmol/L Chloride (98-107) mmol/L BUN 23 H (7-17) mg/dL Creatinine (0.7-1.2) mg/dL Glucose 216 H (65-100) mg/dL POC Glucose 188 H 243 H (70-105) Hemoglobin A1c (4-6) % Calcium (8.4-10.2) mg/dL Phosphorus (2.5-4.5) mg/dL Magnesium (1.7-2.3) mg/dL - Imaging and Cardiology Chest x-ray: image reviewed (clear, no evidence of acute disease) Assessment and Plan 53 y/o with DKA 1. Agree with transition to SubQ insulin therapy 2. Stable for transition to floor 3. Will sign off once on floor.
[2019-04-28] MEDS: INSULIN NPH/REGULAR 70/30 INJ SUB-Q SCH (17:44)
--- NOTE | 2019-04-28 18:30 | Progress Note ---
Hospitalist Physical - Constitutional Vitals: Temp Pulse Resp BP Pulse Ox 98.7 F 95 H 20 126/80 96 04/28/19 12:00 04/28/19 15:11 04/28/19 15:11 04/28/19 15:11 04/28/19 15:11 General appearance: Present: no acute distress, well-nourished, obese Results - Labs CBC & Chem 7: 04/27/19 10:06 04/28/19 11:11 Labs: Laboratory Last Values WBC 10.8 K/mm3 (4.5-11.0) 04/27/19 10:06 RBC 5.75 M/mm3 (3.65-5.03) H 04/27/19 10:06 Hgb 15.6 gm/dl (10.1-14.3) H 04/27/19 10:06 Hct 49.6 % (30.3-42.9) H 04/27/19 10:06 MCV 86 fl (79-97) 04/27/19 10:06 MCH 27 pg (28-32) L 04/27/19 10:06 MCHC 31 % (30-34) 04/27/19 10:06 RDW 13.2 % (13.2-15.2) 04/27/19 10:06 Plt Count 219 K/mm3 (140-440) 04/27/19 10:06 Lymph % (Auto) 12.2 % (13.4-35.0) L 04/27/19 10:06 [place] % (Auto) 7.5 % (0.0-7.3) H 04/27/19 10:06 Eos % (Auto) 0.7 % (0.0-4.3) 04/27/19 10:06 Baso % (Auto) 0.4 % (0.0-1.8) 04/27/19 10:06 Lymph # 1.3 K/mm3 (1.2-5.4) 04/27/19 10:06 [place] # 0.8 K/mm3 (0.0-0.8) 04/27/19 10:06 Eos # 0.1 K/mm3 (0.0-0.4) 04/27/19 10:06 Baso # 0.0 K/mm3 (0.0-0.1) 04/27/19 10:06 Seg Neutrophils % 79.2 % (40.0-70.0) H 04/27/19 10:06 Seg Neutrophils # 8.5 K/mm3 (1.8-7.7) H 04/27/19 10:06 VBG pH 7.334 (7.320-7.420) 04/27/19 10:06 Sodium 133 mmol/L (137-145) L 04/28/19 11:11 Potassium 4.2 mmol/L (3.6-5.0) 04/28/19 11:11 Chloride 98.0 mmol/L (98-107) 04/28/19 11:11 Carbon Dioxide 22 mmol/L (22-30) 04/28/19 11:11 17 mmol/L 04/28/19 11:11 BUN 23 mg/dL (7-17) H 04/28/19 11:11 1.0 mg/dL (0.7-1.2) 04/28/19 11:11 Estimated GFR > 60 ml/min 04/28/19 11:11 23 % 04/28/19 11:11 Glucose 216 mg/dL (65-100) H 04/28/19 11:11 POC Glucose 451 (70-105) H 04/28/19 16:56 10.1 % (4-6) H 04/27/19 15:01 Calcium 9.9 mg/dL (8.4-10.2) 04/28/19 11:11 Phosphorus 1.60 mg/dL (2.5-4.5) L D 04/28/19 03:35 Magnesium 2.70 mg/dL (1.7-2.3) H 04/28/19 03:35 0.60 mg/dL (0.1-1.2) 04/27/19 08:52 AST 20 units/L (5-40) 04/27/19 08:52 ALT 23 units/L (7-56) 04/27/19 08:52 114 units/L (35-129) 04/27/19 08:52 NT-Pro-B Natriuret Pep 77.07 pg/mL (0-900) 04/27/19 09:45 7.7 g/dL (6.3-8.2) 04/27/19 08:52 4.1 g/dL (3.9-5) 04/27/19 08:52 1.1 % 04/27/19 08:52 Colorless (Yellow) 04/27/19 09:46 Clear (Clear) 04/27/19 09:46 6.0 (5.0-7.0) 04/27/19 09:46 Ur Specific [place] 1.027 (1.003-1.030) 04/27/19 09:46 <15 mg/dl mg/dL (Negative) 04/27/19 09:46 >=500 mg/dL (Negative) 04/27/19 09:46 Neg mg/dL (Negative) 04/27/19 09:46 Neg (Negative) 04/27/19 09:46 Neg (Negative) 04/27/19 09:46 Ur Reducing Substances Not Reportable 04/27/19 09:46 Neg (Negative) 04/27/19 09:46 Not Reportable 04/27/19 09:46 < 2.0 mg/dL (<2.0) 04/27/19 09:46 Ur Leukocyte Esterase Sm (Negative) 04/27/19 09:46 3.0 /HPF (0.0-6.0) 04/27/19 09:46 3.0 /HPF (0.0-6.0) 04/27/19 09:46 U Epithel Cells (Auto) 2.0 /HPF (0-13.0) 04/27/19 09:46 1+ /HPF (Negative) 04/27/19 09:46 Urine HCG, Qual Negative (Negative) 04/27/19 09:46 Active Medications - Current Medications Current Medications: Generic Name Dose Route Start Last Admin Trade Name Freq PRN Reason Stop Dose Admin Amlodipine Besylate 10 mg 04/28/19 10:00 04/28/19 09:46 Norvasc PO 10 mg DAILY PAMELA Administration Cephalexin 500 mg 04/27/19 22:00 04/28/19 09:47 Keflex PO 500 mg Q12HR PAMELA Administration Dextrose 0 ml 04/27/19 10:33 D50w (25gm) Syringe IV PRN PRN Hypoglycemia Gabapentin 100 mg 04/27/19 22:00 04/28/19 13:44 Neurontin PO 100 mg Q8HR PAMELA Administration Hydralazine HCl 25 mg 04/27/19 14:00 04/28/19 13:44 Apresoline PO 25 mg Q8HR PAMELA Administration Hydralazine HCl 10 mg 04/27/19 12:35 Apresoline IV Q4HR PRN HTN >155/90 Hydrochlorothiazide 25 mg 04/28/19 10:00 04/28/19 09:46 Hctz PO 25 mg QDAY PAMELA Administration Sodium Chloride 1,000 mls @ 125 mls/hr 04/27/19 13:00 04/28/19 10:35 Nacl 0.9% 1000 Ml IV 125 mls/hr DIRECT PAMELA Administration Insulin Human Isoph/Insulin Regular 10 unit 04/28/19 17:00 04/28/19 17:44 Humulin 70/30 SUB-Q 10 unit BIDDIAB PAMELA Administration Insulin Human Lispro 0 unit 04/28/19 11:30 04/28/19 17:44 Humalog SUB-Q 10 unit ACHS PAMELA Administration Protocol Ketorolac Tromethamine 15 mg 04/27/19 15:00 04/28/19 14:50 Toradol IV 05/02/19 14:59 15 mg Q8H PAMELA Administration Mupirocin 1 applic 04/27/19 22:00 04/28/19 09:48 Bactroban 2% TP 1 applic BID PAMELA Administration Oxycodone/Acetaminophen 1 tab 04/27/19 14:49 04/28/19 05:15 Percocet 5/325 PO 1 tab Q6H PRN Administration Pain, Moderate (4-6) Pantoprazole Sodium 40 mg 04/28/19 10:00 04/28/19 09:46 Protonix IV 40 mg QDAY PAMELA Administration Zolpidem Tartrate 5 mg 04/27/19 14:57 Ambien PO QHS PRN Sleep Nutrition/Malnutrition Assess - Dietary Evaluation Nutrition/Malnutrition Findings: Nutrition Notes Start: 04/28/19 10:31 Freq: Status: Active Protocol: Document 04/28/19 10:31 JAYLYN (Rec: 04/28/19 10:44 [email or web address] [id number]) Nutrition Notes 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 Pt stated she was unaware of what foods have carbohydrates in them. RD discussed different CHO sources with pt, and discussed how to read food label to assess how many grams of CHO are in a serving of selected foods. RD also discussed the role of carbohydrates in providing our bodies with fuel. Pt stated she drank a lot of juice. RD discussed how pt can incorporate juice into her meals as one of her carb servings. Also discussed benefits of eating whole fruit over drinking fruit juice, and pairing proteins and fats with carb sources. #1 Nutrition Diagnosis Food and nutrition-related knowledge deficit Etiology No prior knowledge on diet for diabetes As Evidenced by Signs and Symptoms Pt report of not knowing what foods have carbohydrates, how to use food label to find amount of carbohydrates in a serving of food Nutrition Intervention Teaching Recipient Patient Learning Readiness Good Teaching Methods Discussion,Handout Response to Teaching Verbalize understanding Education Handouts Provided AND's Carbohydrate counting for Diabetes and Using Nutrition Labels: Carbohydrates Barriers to Learning Motivation RD phone number provided Yes Patient aware of follow up options Yes Revisit per MD consult or patient Sign Off request:
[2019-04-29] MEDS: KETOROLAC 30 MG/1 ML INJ IV SCH ×4 (00:05→23:40)
[2019-04-29] MEDS: SODIUM CHLORIDE 0.9% 1000 ML 1,000 ML IV SCH ×3 (04:06→19:15)
[2019-04-29] MEDS: hydrALAZINE 25 MG TAB PO SCH ×3 (06:08→23:08)
[2019-04-29] MEDS: GABAPENTIN 100 MG CAP PO SCH ×3 (06:08→23:07)
[2019-04-29 06:13] LABS: BUN/Creatinine Ratio 30; Blood Urea Nitrogen 21 mg/dL (7-17); Hemolysis Index 5
--- NOTE | 2019-04-29 08:13 | Progress Note ---
Assessment and Plan Assessment and plan: --Hyperosmolar nonketotic hyperglycemia; Vigorous IV hydration, s/p insulin drip Accu-Cheks ,SSC,ADA diet, A1c 10.1 --New onset diabetes mellitus;uncontrolled Increase Novolin 70/30, 20 uniits bid diabetic education, nutrition consult Home health nurse upon discharge for disease monitoring --Hyponatremia/pseudohyponatremia; significantly improved --Hypertension; resume home antihypertensives When necessary medications --Metabolic acidosis; mild, IV fluids Closely monitor --Severe dehydration; vigorous IV hydration --Peripheral neuropathy; gabapentin --Severe muscle spasms; muscle relaxers, pain medication Symptoms improved --DVT : prophylaxis; Lovenox Patient is stable to be transferred out of ICU to medical floor Possible discharge in 1-2 days if stable History Interval history: Patient seen and examined medical records reviewed Patient complains of some lightheadedness Vital signs are stable The sugars are still uncontrolled Alert awake oriented 3 multiple family members at the bedside Hospitalist Physical - Constitutional Vitals: Temp Pulse Resp BP Pulse Ox 98.5 F 84 16 119/61 99 04/29/19 04:39 04/29/19 04:39 04/29/19 04:39 04/29/19 04:39 04/29/19 04:39 General appearance: Present: no acute distress, well-nourished - EENT Eyes: Present: PERRL, EOM intact - Neck Neck: Present: supple, normal ROM - Respiratory Respiratory effort: normal Respiratory: bilateral: diminished, negative: rales, rhonchi, wheezing - Cardiovascular Rhythm: regular Heart Sounds: Present: S1 & S2 - Extremities Extremities: no ischemia, No edema - Abdominal General gastrointestinal: soft, non-tender, non-distended, normal bowel sounds - Integumentary Integumentary: Present: clear, warm - Psychiatric Psychiatric: appropriate mood/affect, cooperative - Neurologic Neurologic: CNII-XII intact, moves all extremities Results - Labs CBC & Chem 7: 04/27/19 10:06 04/29/19 05:25 Labs: Laboratory Last Values WBC 10.8 K/mm3 (4.5-11.0) 04/27/19 10:06 RBC 5.75 M/mm3 (3.65-5.03) H 04/27/19 10:06 Hgb 15.6 gm/dl (10.1-14.3) H 04/27/19 10:06 Hct 49.6 % (30.3-42.9) H 04/27/19 10:06 MCV 86 fl (79-97) 04/27/19 10:06 MCH 27 pg (28-32) L 04/27/19 10:06 MCHC 31 % (30-34) 04/27/19 10:06 RDW 13.2 % (13.2-15.2) 04/27/19 10:06 Plt Count 219 K/mm3 (140-440) 04/27/19 10:06 Lymph % (Auto) 12.2 % (13.4-35.0) L 04/27/19 10:06 [place] % (Auto) 7.5 % (0.0-7.3) H 04/27/19 10:06 Eos % (Auto) 0.7 % (0.0-4.3) 04/27/19 10:06 Baso % (Auto) 0.4 % (0.0-1.8) 04/27/19 10:06 Lymph # 1.3 K/mm3 (1.2-5.4) 04/27/19 10:06 [place] # 0.8 K/mm3 (0.0-0.8) 04/27/19 10:06 Eos # 0.1 K/mm3 (0.0-0.4) 04/27/19 10:06 Baso # 0.0 K/mm3 (0.0-0.1) 04/27/19 10:06 Seg Neutrophils % 79.2 % (40.0-70.0) H 04/27/19 10:06 Seg Neutrophils # 8.5 K/mm3 (1.8-7.7) H 04/27/19 10:06 VBG pH 7.334 (7.320-7.420) 04/27/19 10:06 Sodium 134 mmol/L (137-145) L 04/29/19 05:25 Potassium 4.0 mmol/L (3.6-5.0) 04/29/19 05:25 Chloride 100.6 mmol/L (98-107) 04/29/19 05:25 Carbon Dioxide 21 mmol/L (22-30) L 04/29/19 05:25 16 mmol/L 04/29/19 05:25 BUN 21 mg/dL (7-17) H 04/29/19 05:25 0.7 mg/dL (0.7-1.2) 04/29/19 05:25 Estimated GFR > 60 ml/min 04/29/19 05:25 30 % 04/29/19 05:25 Glucose 317 mg/dL (65-100) H 04/29/19 05:25 POC Glucose 335 (70-105) H 04/29/19 07:45 10.1 % (4-6) H 04/27/19 15:01 Calcium 9.0 mg/dL (8.4-10.2) 04/29/19 05:25 Phosphorus 2.70 mg/dL (2.5-4.5) D 04/29/19 05:25 Magnesium 2.30 mg/dL (1.7-2.3) 04/29/19 05:25 0.60 mg/dL (0.1-1.2) 04/27/19 08:52 AST 20 units/L (5-40) 04/27/19 08:52 ALT 23 units/L (7-56) 04/27/19 08:52 114 units/L (35-129) 04/27/19 08:52 NT-Pro-B Natriuret Pep 77.07 pg/mL (0-900) 04/27/19 09:45 7.7 g/dL (6.3-8.2) 04/27/19 08:52 4.1 g/dL (3.9-5) 04/27/19 08:52 1.1 % 04/27/19 08:52 Colorless (Yellow) 04/27/19 09:46 Clear (Clear) 04/27/19 09:46 6.0 (5.0-7.0) 04/27/19 09:46 Ur Specific [place] 1.027 (1.003-1.030) 04/27/19 09:46 <15 mg/dl mg/dL (Negative) 04/27/19 09:46 >=500 mg/dL (Negative) 04/27/19 09:46 Neg mg/dL (Negative) 04/27/19 09:46 Neg (Negative) 04/27/19 09:46 Neg (Negative) 04/27/19 09:46 Ur Reducing Substances Not Reportable 04/27/19 09:46 Neg (Negative) 04/27/19 09:46 Not Reportable 04/27/19 09:46 < 2.0 mg/dL (<2.0) 04/27/19 09:46 Ur Leukocyte Esterase Sm (Negative) 04/27/19 09:46 3.0 /HPF (0.0-6.0) 04/27/19 09:46 3.0 /HPF (0.0-6.0) 04/27/19 09:46 U Epithel Cells (Auto) 2.0 /HPF (0-13.0) 04/27/19 09:46 1+ /HPF (Negative) 04/27/19 09:46 Urine HCG, Qual Negative (Negative) 04/27/19 09:46 Active Medications - Current Medications Current Medications: Generic Name Dose Route Start Last Admin Trade Name Freq PRN Reason Stop Dose Admin Amlodipine Besylate 10 mg 04/28/19 10:00 04/28/19 09:46 Norvasc PO 10 mg DAILY PAMELA Administration Cephalexin 500 mg 04/27/19 22:00 04/28/19 22:21 Keflex PO 500 mg Q12HR PAMELA Administration Dextrose 0 ml 04/27/19 10:33 D50w (25gm) Syringe IV PRN PRN Hypoglycemia Gabapentin 100 mg 04/27/19 22:00 04/29/19 06:08 Neurontin PO 100 mg Q8HR PAMELA Administration Hydralazine HCl 25 mg 04/27/19 14:00 04/29/19 06:08 Apresoline PO 25 mg Q8HR PAMELA Administration Hydralazine HCl 10 mg 04/27/19 12:35 Apresoline IV Q4HR PRN HTN >155/90 Hydrochlorothiazide 25 mg 04/28/19 10:00 04/28/19 09:46 Hctz PO 25 mg QDAY PAMELA Administration Sodium Chloride 1,000 mls @ 125 mls/hr 04/27/19 13:00 04/29/19 04:06 Nacl 0.9% 1000 Ml IV 125 mls/hr DIRECT PAMELA Administration Insulin Human Isoph/Insulin Regular 20 unit 04/29/19 08:11 Humulin 70/30 SUB-Q BIDDIAB PAMELA Insulin Human Lispro 0 unit 04/28/19 11:30 04/28/19 22:21 Humalog SUB-Q 6 unit ACHS PAMELA Administration Protocol Ketorolac Tromethamine 15 mg 04/27/19 15:00 04/29/19 00:05 Toradol IV 05/02/19 14:59 15 mg Q8H PAMELA Administration Mupirocin 1 applic 04/27/19 22:00 04/28/19 22:34 Bactroban 2% TP 1 applic BID PAMELA Administration Nicotine 21 mg 04/29/19 10:00 Habitrol TD QDAY PAMELA Oxycodone/Acetaminophen 1 tab 04/27/19 14:49 04/28/19 22:21 Percocet 5/325 PO 1 tab Q6H PRN Administration Pain, Moderate (4-6) Pantoprazole Sodium 40 mg 04/28/19 10:00 04/28/19 09:46 Protonix IV 40 mg QDAY PAMELA Administration Zolpidem Tartrate 5 mg 04/27/19 14:57 Ambien PO QHS PRN Sleep Nutrition/Malnutrition Assess - Dietary Evaluation Nutrition/Malnutrition Findings: Nutrition Notes Start: 04/28/19 10:31 Freq: Status: Active Protocol: Document 04/28/19 10:31 (Rec: 04/28/19 10:44 [id number]) Nutrition Notes Need for 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 Pt stated she was unaware of what foods have carbohydrates in them. RD discussed different CHO sources with pt, and discussed how to read food label to assess how many grams of CHO are in a serving of selected foods. RD also discussed the role of carbohydrates in providing our bodies with fuel. Pt stated she drank a lot of juice. RD discussed how pt can incorporate juice into her meals as one of her carb servings. Also discussed benefits of eating whole fruit over drinking fruit juice, and pairing proteins and fats with carb sources. #1 Nutrition Diagnosis Food and nutrition-related knowledge deficit Etiology No prior knowledge on diet for diabetes As Evidenced by Signs and Symptoms Pt report of not knowing what foods have carbohydrates, how to use food label to find amount of carbohydrates in a serving of food Nutrition Intervention Teaching Recipient Patient Learning Readiness Good Teaching Methods Discussion,Handout Response to Teaching Verbalize understanding Education Handouts Provided AND's Carbohydrate counting for Diabetes and Using Nutrition Labels: Carbohydrates Barriers to Learning Motivation RD phone number provided Yes Patient aware of follow up options Yes Revisit per MD consult or patient Sign Off request:
[2019-04-29] MEDS: INSULIN LISPRO 100 UNIT/ML SUB-Q SCH ×4 (08:19→23:07)
[2019-04-29] MEDS ORDERED: INSULIN NPH/REGULAR 70/30 INJ SUB-Q SCH (09:00)
[2019-04-29] MEDS: cephALEXin 500 MG CAP PO SCH ×2 (09:58→23:07)
[2019-04-29] MEDS: amLODIPine 10 MG TAB PO SCH (09:58)
[2019-04-29] MEDS: NICOTINE 21 MG/24 HR PATCH TD SCH (09:59)
[2019-04-29] MEDS: hydroCHLOROthiazide 25 MG TAB PO SCH (09:59)
[2019-04-29] MEDS: PANTOPRAZOLE 40 MG TAB PO SCH (09:59)
[2019-04-29] MEDS: MUPIROCIN 2% OINT 22 GM TP SCH ×2 (10:03→23:30)
[2019-04-29] MEDS: INSULIN NPH/REGULAR 70/30 INJ SUB-Q SCH ×2 (13:10→19:14)
[2019-04-30] MEDS: SODIUM CHLORIDE 0.9% 1000 ML 1,000 ML IV SCH ×2 (03:15→12:05)
[2019-04-30] MEDS: GABAPENTIN 100 MG CAP PO SCH (06:00)
[2019-04-30] MEDS: hydrALAZINE 25 MG TAB PO SCH (06:00)
[2019-04-30 06:47] LABS: BUN/Creatinine Ratio 20; Blood Urea Nitrogen 10 mg/dL (7-17); Calcium 9.1 mg/dL (8.4-10.2); Hemolysis Index 24
[2019-04-30] MEDS: INSULIN NPH/REGULAR 70/30 INJ SUB-Q SCH (08:47)
[2019-04-30] MEDS: KETOROLAC 30 MG/1 ML INJ IV SCH (08:48)
[2019-04-30] MEDS: INSULIN LISPRO 100 UNIT/ML SUB-Q SCH (08:48)
[2019-04-30] MEDS: PANTOPRAZOLE 40 MG TAB PO SCH (10:51)
[2019-04-30] MEDS: NICOTINE 21 MG/24 HR PATCH TD SCH (10:51)
[2019-04-30] MEDS: cephALEXin 500 MG CAP PO SCH (10:51)
[2019-04-30] MEDS: amLODIPine 10 MG TAB PO SCH (10:52)
[2019-04-30] MEDS: hydroCHLOROthiazide 25 MG TAB PO SCH (10:52)
[2019-04-30] MEDS: MUPIROCIN 2% OINT 22 GM TP SCH (10:53)
--- NOTE | 2019-04-30 17:21 | Discharge Summary ---
Providers - Providers Date of Admission: 04/27/19 10:54 Date of discharge: 04/30/19 Attending physician: MICHELINE VICTOR Primary care physician: RESTRIKE HAMMER OPERATOR Hospitalization Reason for admission: Hyperosmolar hyperglycemia/nausea, vomiting Condition: Serious Pertinent studies: CXR: neg Hospital course: 49-year-old -[place] female patient with significant past medical history of hypertension, recent insect bite on oral antibiotics presented to the emergency room With the complaints of not feeling well, nausea vomiting and generalized weakness, Denies chest pain or shortness of breath, Denies headache dizziness, Initial workup in the emergency room is consistent with severe hyper glycemia. Blood sugars more than thousand, mild acidosis, hyponatremia, Patient was started on insulin drip and is being admitted to ICU for further evaluation and management,Patient also complains of leg cramps and reports that she takes pain medications Robaxin and gabapentin. Patient denies history of diabetes mellitus however reports that she was told that she is prediabetic and is not on any medication. Transitioned to long acting insulin,received diabetic education,nutrition education. Home health nurse for disease monitoring at discharge. Today patient is comfortable,moderate control of sugars Stable at discharge Discharge Diagnosis: --KELVIN : vasomotor nephropathy ,POA Significant improvement.Cr normal range --Hyperosmolar nonketotic hyperglycemia; Vigorous IV hydration, s/p insulin drip Accu-Cheks ,SSC,ADA diet, A1c 10.1 --New onset diabetes mellitus;moderate control Increase Novolin 70/30, 20 uniits bid diabetic education, nutrition consult Home health nurse upon discharge for disease monitoring --Hyponatremia/pseudohyponatremia; significantly improved --Hypertension; resume home antihypertensives When necessary medications --Metabolic acidosis; resoved --Severe dehydration; improved --Peripheral neuropathy; gabapentin --Severe muscle spasms; muscle relaxers, pain medication Symptoms improved --DVT : prophylaxis; Lovenox Patient is stable at discharge Disposition: [id number] HOME UNDER HOME [facility] Time spent for discharge: 32 min Core Measure Documentation - Palliative Care Palliative Care/ Comfort Measures: Not Applicable - Core Measures Any of the following diagnoses?: none Exam - Constitutional Vitals: Temp Pulse Resp BP Pulse Ox 98.0 F 87 19 135/71 100 04/30/19 11:46 04/30/19 11:46 04/30/19 11:46 04/30/19 11:46 04/30/19 11:46 General appearance: Present: no acute distress, well-nourished - EENT Eyes: Present: PERRL, EOM intact - Neck Neck: Present: supple, normal ROM - Respiratory Respiratory effort: normal Respiratory: negative: rales, rhonchi, wheezing - Cardiovascular Rhythm: regular Heart Sounds: Present: S1 & S2 - Extremities Extremities: no ischemia, No edema Peripheral Pulses: within normal limits - Abdominal General gastrointestinal: Present: soft, non-tender, non-distended, normal bowel sounds - Integumentary Integumentary: Present: clear, warm - Musculoskeletal Musculoskeletal: strength equal bilaterally, generalized weakness - Psychiatric Psychiatric: appropriate mood/affect, cooperative - Neurologic Neurologic: CNII-XII intact, moves all extremities Plan Activity: no restrictions Diet: diabetic Special Instructions: smoking cessation Additional Instructions: Advised to follow diabetic diet. 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 4 days work excuse 05/01/2019 till 05/04/2019 Follow up with: CORINNE JONES MD [Primary Care Provider] - 3-5 Days CHINO GOMEZ MD [Staff Physician] - 7 Days Forms: Work/School Release Form Prescriptions: hydrALAZINE [Apresoline TAB] 25 mg PO Q8HR #90 tablet Nicotine [Habitrol] 21 mg TD QDAY #30 patch Lispro Insulin [HumaLOG] See Protocol SUB-Q ACHS 30 Days #1 vial Gabapentin [Neurontin] 100 mg PO Q8HR #90 capsule Insulin NPH/Regular [NovoLIN 70/30] 28 unit SUB-Q BIDDIAB 30 Days #1 vial Other Discharge Orders: Glucometer (Amb) Location: None Selected Glucometer supplies[Amb] Location: None Selected
[2019-04-30 19:30] VITALS: BP 145/75
== END 2019-04-30 19:10 | disposition home health service (06) | DRG 637 ==
LOC: ED 08:21 → CC1 10:54 → 3A 04-28 15:59
PROVIDERS: ADMIT Internal Medicine; ATTEND Internal Medicine
DX: E11.00 Type 2 diabetes mellitus with hyperosmolarity without nonketotic hyperglycemic-hyperosmolar coma (NKHHC) (principal); N17.0 Acute kidney failure with tubular necrosis; E87.1 Hypo-osmolality and hyponatremia; E87.2 Acidosis; L03.115 Cellulitis of right lower limb; G89.29 Other chronic pain; E11.42 Type 2 diabetes mellitus with diabetic polyneuropathy; I10 Essential (primary) hypertension; E86.0 Dehydration; F17.210 Nicotine dependence, cigarettes, uncomplicated; Z71.6 Tobacco abuse counseling; Z82.49 Family history of ischemic heart disease and other diseases of the circulatory system; Z98.51 Tubal ligation status; Z79.899 Other long term (current) drug therapy; Z79.84 Long term (current) use of oral hypoglycemic drugs
CPT/HCPCS: 36415; 71045; 80048; 80053; 81001; 81025; 82805; 82962; 83036; 83735; 83880; 84100; 85025; 93005; 93010; 96361; 96374; 99406; G0378; C9113; J0696; J1815; J1885; J2405; J7030